=== PATIENT | female | born 1955 | race Caucasian/White ===

== ENCOUNTER 2022-07-16 22:52 | Inpatient (IN) | payer MEDICARE ==
[~2022-07-16] VITALS: Ht 157.5 cm; Wt 63.5 kg
--- NOTE | 2022-07-16 23:18 | NUR ---
Dr. Hummel evaluated patient at bedside. MSE in progress.
[2022-07-16] MEDS ORDERED: IV NORMAL SALINE 1000 ML BAG IV ONE (23:30)
[2022-07-16] MEDS ORDERED: ONDANSETRON 4 MG/2 ML VIAL IV ONE (23:30)
[2022-07-16] MEDS ORDERED: HYDROMORPHONE 1 MG/1 ML DISP.SYRIN IV ONE (23:30)
[2022-07-16] MEDS ORDERED: IV NORMAL SALINE 250 ML IV ONE (23:34)
[2022-07-16] MEDS ORDERED: IOHEXOL 350 100 ML INFUS..BTL ONE (23:35)
[2022-07-16] MEDS ORDERED: ONDANSETRON 4 MG/2 ML VIAL ONE (23:49)
[2022-07-16] MEDS ORDERED: HYDROMORPHONE 1 MG/1 ML DISP.SYRIN ONE (23:50)
[2022-07-16 23:52] LABS: HEMATOCRIT 36.3 % (31.2-41.9); MEAN CORPUSCULAR HEMOGLOBIN 31.6 uug (24.7-32.8); MEAN CORPUSCULAR VOLUME 92.7 fL (75.5-95.3); PLATELET COUNT (AUTO) 167 K/uL (179-408)
[2022-07-16 23:57] LABS: CREATININE 1.2 mg/dL (0.6-1.3); POTASSIUM 3.4 mmol/L (3.5-5.1)
[2022-07-17 00:03] LABS: BILIRUBIN,DIRECT 0.1 mg/dL (0.0-0.2); BILIRUBIN,TOTAL 0.3 mg/dL (0.2-1.0); TOTAL PROTEIN, SERUM 7.9 g/dL (6.4-8.2)
--- NOTE | 2022-07-17 00:11 | NUR ---
Patient's signed consent for CT of abd/pelvis w/ contrast.
[2022-07-17] MEDS ORDERED: POTASSIUM CHLORIDE 50 ML ONE ×3 (00:17→02:20)
[2022-07-17] MEDS ORDERED: MAGNESIUM SULFATE/D5W 100 ML ONE ×2 (00:18→01:19)
[2022-07-17] MEDS: MAGNESIUM SULFATE/D5W 100 ML IV SCH ×2 (00:22→01:20)
--- NOTE | 2022-07-17 00:30 | NUR ---
Unable to start Pottasium Chloride infusion due to patient taken to CT.
[2022-07-17] MEDS: POTASSIUM CHLORIDE 50 ML IV SCH ×7 (00:33→03:32)
--- NOTE | 2022-07-17 00:36 | NUR ---
Patient taken to CT via wheelchair accompanied by
[2022-07-17] MEDS ORDERED: PIPERACILLIN SODIUM/TAZOBACTAM 4.5 G in IV DEXTROSE 5% 50 ML IV ONE (01:15)
[2022-07-17] MEDS ORDERED: PIPERACILLIN/TAZOBACTAM/D5W 50 ML IV ONE (01:50)
--- NOTE | 2022-07-17 02:10 | NUR ---
Patient ambulated to the bathroom indepedently. Activity tolerated well.
--- NOTE | 2022-07-17 02:35 | NUR ---
Patient c/o of nausea. Dr. Hummel notified. Compazine 10mg IV ordered per Dr. Hummel.
[2022-07-17] MEDS ORDERED: PROCHLORPERAZINE EDISYLATE 10 MG/2 ML VIAL ONE (02:41)
[2022-07-17] MEDS ORDERED: PROCHLORPERAZINE EDISYLATE 10 MG/2 ML VIAL IV ONE (02:45)
--- NOTE | 2022-07-17 02:49 | NUR ---
Patient resting comfortably in bed, no signs of distress noted.
--- NOTE | 2022-07-17 03:05 | NUR ---
Received call from lab, urine container had loose lid and urine spilled.
[2022-07-17 03:06] LABS: *BILIRUBIN,URIN NEGATIVE (NEGATIVE); *CLARITY,URINE CLEAR (CLEAR); *COLOR,URINE YELLOW (YELLOW); *KETONES,URINE NEGATIVE (NEGATIVE); *UROBILINOGEN,URINE 0.2 E.U./dl (NORMAL); LEUKOCYTE ESTERASE ,URINE NEGATIVE (NEGATIVE); NITRITE, URINE NEGATIVE (NEGATIVE); UGLUCOSE TRACE (NEGATIVE)
[2022-07-17 03:07] LABS: *BLOOD, URINE TRACE (NEGATIVE)
[2022-07-17] MEDS ORDERED: AMLO-212 PO (04:28)
[2022-07-17] MEDS ORDERED: LOSA25TA27 PO (04:28)
--- NOTE | 2022-07-17 04:28 | NUR ---
Pt unable to remember dosages of her medications, states cuts them in half and takes half in AM and PM for both BP meds. Needs follow up.
[2022-07-17 05:10] LABS: BACTERIA,URINE FEW /HPF (NONE SEEN); RBC,URINE 0-3 /HPF (0-3)
[2022-07-17 05:11] LABS: SQUAMOUS EPITHELIAL CELL,UR FEW /HPF (NONE SEEN); WBC,URINE 0-3 /HPF (0-3)
[2022-07-17] MEDS ORDERED: HYDROMORPHONE 1 MG/1 ML DISP.SYRIN ONE (06:44)
[2022-07-17] MEDS ORDERED: ONDANSETRON 4 MG/2 ML VIAL ONE (06:44)
[2022-07-17] MEDS ORDERED: HYDROMORPHONE 1 MG/1 ML DISP.SYRIN IV ONE (06:45)
[2022-07-17] MEDS ORDERED: ONDANSETRON 4 MG/2 ML VIAL IV ONE (06:45)
--- NOTE | 2022-07-17 07:34 | NUR ---
PT IS RESTING IN BED COMFORTABLY. NO S/S OF ACUTE DISTRESS.
--- NOTE | 2022-07-17 09:02 | NUR ---
REPORT WAS GIVEN TO RN M/S. PT WAS TRANSFERED TO ROOM #302.
[2022-07-17] MEDS ORDERED: REMEDY ESSENTIAL ZINC PASTE 113 GM TP PRN (09:15)
[2022-07-17] MEDS ORDERED: MORPHINE SULFATE 2 MG/1 ML DISP.SYRIN IV PRN (09:15)
[2022-07-17] MEDS ORDERED: ZOLPIDEM 5 MG TABLET PO PRN (09:15)
[2022-07-17] MEDS ORDERED: ONDANSETRON 4 MG/2 ML VIAL IV PRN (09:15)
[2022-07-17] MEDS ORDERED: MAGNESIUM HYDROXIDE 30 ML LIQUID UDC PO PRN (09:15)
[2022-07-17] MEDS ORDERED: ACETAMINOPHEN 325 MG TABLET PO PRN (09:15)
[2022-07-17 10:00] VITALS: BP 140/68
[2022-07-17] MEDS: IV NS 1000 ML 1,000 ML IV PRN (10:59)
[2022-07-17 12:00] VITALS: BP 138/72
[2022-07-17] MEDS: PIPERACILLIN SODIUM/TAZOBACTAM 3.375 G in IV DEXTROSE 5% 100 ML IV SCH ×2 (16:01→23:54)
[2022-07-17] MEDS ORDERED: KETOROLAC TROMETHAMINE 15 MG INJ IVP PRN (17:15)
[2022-07-17 17:36] VITALS: BP 133/68
[2022-07-17] MEDS ORDERED: PIPERACILLIN SODIUM/TAZOBACTAM 3.375 G in IV DEXTROSE 5% 50 ML IV SCH (18:00)
--- NOTE | 2022-07-17 18:20 | NUR ---
Renal JONNIE result given to Leslie LANGE hospitalist. F/u with ABD JONNIE result still not showing on [facility]. Radiology Dept states that they will f/u with radiologist to read the abd jonnie.
--- NOTE | 2022-07-17 18:33 | NUR ---
ABD ANGELINA result notified Leslie LANGE hospitalist. Discussed with pt proper pain management if pt persistent on the R CVA pain. PT agreeable to notify Nursing if she needs any pain meds.
--- NOTE | 2022-07-17 19:22 | NUR ---
Spoke with SAL BECKFORD, daughter verified DOSE Losartan 50 mg po BID Norvasc 5mg PO BID. Pharmacy Not available.
[2022-07-17 20:00] VITALS: BP 148/66
--- NOTE | 2022-07-17 20:05 | NUR ---
Patient taken downstair via wheelchair for HIDA scan. Patient in stable condition, no signs of distress noted.
[2022-07-18 04:00] VITALS: BP 124/56
[2022-07-18] MEDS: IV NS 1000 ML 1,000 ML IV PRN (05:26)
[2022-07-18 07:17] LABS: HEMATOCRIT 32.8 % (31.2-41.9); MEAN CORPUSCULAR HEMOGLOBIN 32.1 uug (24.7-32.8); MEAN CORPUSCULAR VOLUME 93.8 fL (75.5-95.3); PLATELET COUNT (AUTO) 157 K/uL (179-408)
[2022-07-18 07:37] LABS: BILIRUBIN,TOTAL 0.5 mg/dL (0.2-1.0); CREATININE 0.7 mg/dL (0.6-1.3); MAGNESIUM 2.3 mg/dL (1.8-2.4); PHOSPHOROUS 3.1 mg/dL (2.5-4.9); POTASSIUM 3.7 mmol/L (3.5-5.1); TOTAL PROTEIN, SERUM 6.7 g/dL (6.4-8.2)
--- NOTE | 2022-07-18 08:00 | NUR ---
Discussed plan of care with patient RE: pain management and let rn know for any c/o pain and n/v. Pt agreeable with plan of care. Pt currently denies any c/o any RIGHT CVA pain.
[2022-07-18] MEDS: PIPERACILLIN SODIUM/TAZOBACTAM 3.375 G in IV DEXTROSE 5% 100 ML IV SCH ×2 (08:09→16:19)
[2022-07-18] MEDS: PANTOPRAZOLE SODIUM 40 MG VIAL IV SCH (08:48)
[2022-07-18] MEDS ORDERED: AMLODIPINE 5 MG TABLET PO ONE (09:00)
[2022-07-18] MEDS ORDERED: LOSARTAN POTASSIUM 25 MG TABLET PO ONE (09:00)
[2022-07-18] MEDS ORDERED: LOSARTAN POTASSIUM 25 MG TABLET PO SCH (09:00)
[2022-07-18 12:00] VITALS: BP 119/65
[2022-07-18 16:00] VITALS: BP 126/60
[2022-07-18] MEDS: LOSARTAN POTASSIUM 50 MG TABLET PO SCH (16:20)
--- NOTE | 2022-07-18 18:30 | NUR ---
Pt tolerated soft diet and drinking fluids w/o any abd discomfort. Pt didn't take any pain meds or Zofran throughout shift.
[2022-07-18 20:00] VITALS: BP 135/81
[2022-07-18] MEDS: AMLODIPINE 5 MG TABLET PO SCH (20:25)
[2022-07-19] MEDS: PIPERACILLIN SODIUM/TAZOBACTAM 3.375 G in IV DEXTROSE 5% 100 ML IV SCH ×2 (00:38→08:33)
[2022-07-19 04:00] VITALS: BP 127/78
--- NOTE | 2022-07-19 05:49 | NUR ---
Slept comfortably. No N/V or abdominal pain through out the night. Zosyn given as ordered. No adverse reaction noted. All needs attended. Call light within reach. Safety precautions maintained.
[2022-07-19 06:52] LABS: HEMATOCRIT 34.9 % (31.2-41.9); MEAN CORPUSCULAR HEMOGLOBIN 31.9 uug (24.7-32.8); MEAN CORPUSCULAR VOLUME 93.9 fL (75.5-95.3); PLATELET COUNT (AUTO) 173 K/uL (179-408)
[2022-07-19 07:38] LABS: BILIRUBIN,TOTAL 0.6 mg/dL (0.2-1.0); CREATININE 0.7 mg/dL (0.6-1.3); POTASSIUM 3.6 mmol/L (3.5-5.1); TOTAL PROTEIN, SERUM 7.4 g/dL (6.4-8.2)
[2022-07-19 08:00] VITALS: BP 126/66
--- NOTE | 2022-07-19 08:00 | NUR ---
Received patient lying in bed awake, alert and oriented. No signs of distress, no complain of nausea and vomiting. IV site on left AC g. 20. on room air saturating at 97%. Attended
[2022-07-19 08:33] VITALS: BP 126/66
[2022-07-19] MEDS: LOSARTAN POTASSIUM 50 MG TABLET PO SCH (08:33)
[2022-07-19] MEDS: AMLODIPINE 5 MG TABLET PO SCH (08:33)
[2022-07-19] MEDS: PANTOPRAZOLE SODIUM 40 MG VIAL IV SCH (08:33)
--- NOTE | 2022-07-19 09:41 | NUR ---
IV site is leaking not patent anymore, reinserted new IV line at right wrist g.20 intact and patent. Medications given and recorded
--- NOTE | 2022-07-19 10:31 | NUR ---
Seen and examined by YANIRA Pa with order for discharge and carried out. Prepared all papers and forms for discharge Signed papers for discharge, answered all questions. Patient verbalize understanding Attended
[2022-07-19] MEDS ORDERED: CIPR-262 PO (10:39)
--- NOTE | 2022-07-19 13:30 | NUR ---
Given and instructed discharge papers. Answered all questions. Removed IV line, clean and dry. Vital signs stable Discharge at 1330
== END 2022-07-19 13:30 | disposition home or self-care (01) | DRG 445 ==
LOC: ER 22:52 → MEDSURG3 07-17 09:01
PROVIDERS: ADMIT Nurse Practitioner Acute Care; ATTEND Nurse Practitioner Acute Care
DX: K81.0 Acute cholecystitis (principal); N39.0 Urinary tract infection, site not specified; N28.89 Other specified disorders of kidney and ureter; E87.6 Hypokalemia; Z87.442 Personal history of urinary calculi; I10 Essential (primary) hypertension; R10.31 Right lower quadrant pain; R79.89 Other specified abnormal findings of blood chemistry; Z98.891 History of uterine scar from previous surgery
CPT/HCPCS: 36415; 76705; 76770; 78445; 83605; 83690; 83735; 84100; 85025; 93005; A4663; A9537; C9113; G0378; J0780; J1170; J2270; J2405; J2543; J3475; J3480; J7040; Q9967